=== PATIENT | male | born 1935 | race Caucasian/White ===

== ENCOUNTER 2021-02-24 10:12 | Emergency (ER) | payer MEDICARE, SELFPAY ==
[2021-02-24 10:45] VITALS: BP 179/90; PULSE 69; RESP 17; TEMP 36.7; O2SAT 98; BMI 23.0
--- NOTE | 2021-02-24 11:05 | XR_ITS ---
WS: [id number] Right shoulder, 3 views, 02/24/2021 Clinical Data: r shoulder pain Comparison: None. Findings: No fractures or dislocations are seen. The AC joint is normal. The adjacent right clavicle, right sca pula and ribs are normal. There is a small calcification over the greater tuberosity consistent with calcific bursitis and/or tendinitis.. An anterior cervical disc fusion is present. XR/XR shoulder RT min 2V* [id number] Impression: Negative for fracture or dislocation of the right shoulder.
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
[2021-02-24 11:11] VITALS: PULSE 70; RESP 18; O2SAT 96
[2021-02-24 11:47] LABS: Basophils # 0.1 10^3/uL (0.0-0.1); Eosinophils # 0.1 10^3/uL (0.0-0.8); Eosinophils % 1.2 %; Hematocrit 41.7 % (42.0-52.0); Hemoglobin 13.2 g/dL (11.7-16.6); Lymphocytes # 1.4 10^3/uL (0.8-4.8); Lymphocytes % 24.5 %; Mean Corpuscular HGB Conc 31.7 g/dL (30.0-36.0); Mean Corpuscular Hemoglobin 30.8 pg (28.0-34.0); Mean Corpuscular Volume 97.4 fL (80-94); Monocytes # 0.5 10^3/uL (0.2-0.9); Monocytes % 9.2 %; Neutrophils # 3.69 10^3/uL (1.8-7.7); Neutrophils % 63.8 %; Nucleated Red Blood Cells % 0 %; Platelet Count 209 10^3/cmm (130-400); Red Blood Count 4.28 10^6/uL (4.1-5.3); White Blood Count 5.8 10^3/uL (4.0-10.0)
[2021-02-24 12:14] LABS: Anion Gap 12.5 (5-19); Blood Urea Nitrogen 18 mg/dL (8-23); Calcium 8.9 mg/dL (8.5-10.5); Carbon Dioxide 27 mmol/L (22-29); Chloride 102 mmol/L (98-107); Glucose 100 mg/dL (65-115); Osmolality Calculated 286 mOsm/kg (285-295); Potassium 4.5 mmol/L (3.5-5.1); Sodium 137 mmol/L (136-145)
[2021-02-24 12:17] LABS: INR 1.81 (0.8-1.2)
[2021-02-24 13:13] VITALS: BP 149/98; PULSE 73; RESP 13; O2SAT 97
[2021-02-24] MEDS: bacitracin ointment Pkt 1 EACH TOPICAL (13:13)
== END 2021-02-24 13:19 | disposition home or self-care (01) ==
PROVIDERS: Emergency Provider Family Medicine
DX: S13.4XXA Sprain of ligaments of cervical spine, initial encounter (principal); S09.90XA Unspecified injury of head, initial encounter; S00.81XA Abrasion of other part of head, initial encounter; V89.2XXA Person injured in unspecified motor-vehicle accident, traffic, initial encounter; I50.9 Heart failure, unspecified; Z95.810 Presence of automatic (implantable) cardiac defibrillator; Z79.01 Long term (current) use of anticoagulants
CPT/HCPCS: 70450; 71045; 72125; 73030; 80048; 85025; 85610; 99283